=== PATIENT | male | born 1975 | race African-American/Black ===

== ENCOUNTER 2017-05-31 13:32 | Inpatient (IN) | payer MEDICAID ==
[~2017-05-31] VITALS: Ht 172.7 cm; Wt 67.3 kg
[2017-05-31 14:14] LABS: BASOPHILS 0.3 % (0-2); EOSINOPHILS 3.1 % (0-7); HEMATOCRIT 39.2 % (42.0-54.0); HEMOGLOBIN 12.9 g/dL (13.5-17.5); IMMATURE GRANULOCYTES 0.1 % (0-5); LYMPHOCYTES 30.9 % (15-50); MCH 30.1 pg (26.0-34.0); MCHC 32.9 g/dL (31.0-37.0); MCV 91.6 fL (80.0-100.0); MEAN PLATELET VOLUME 9.5 fL (7.4-10.4); MONOCYTES 10.1 % (2-11); NEUTROPHILS 55.5 % (40-80); PLATELET COUNT 261 10x3/uL (130-400); RBC 4.28 10x6/uL (4.20-6.10); RDW 14.5 % (11.5-14.5); WBC 8.7 10x3/uL (4.8-10.8)
[2017-05-31 14:28] LABS: ALBUMIN 3.8 g/dL (3.4-5.0); ANION GAP 10.9 mmol/L (8-16); BILIRUBIN - TOTAL 0.32 mg/dL (0.2-1.3); CALCIUM 8.9 mg/dL (8.5-10.1); CARBON DIOXIDE 29.2 mmol/L (21.0-32.0); CREATININE - SERUM 1.2 mg/dL (0.6-1.3); POTASSIUM - SERUM 4.1 mmol/L (3.5-5.1); PROTEIN - SERUM 7.3 g/dL (6.4-8.2)
[2017-05-31 14:35] LABS: APPEARANCE CLEAR (CLEAR); BILIRUBIN NEGATIVE (NEGATIVE); COLOR STRAW (YELLOW); GLUCOSE NEGATIVE (NEGATIVE); KETONE NEGATIVE (NEGATIVE); NITRITE NEGATIVE (NEGATIVE); PROTEIN NEGATIVE (NEGATIVE); SPECIFIC GRAVITY 1.005 (1.005-1.020); UROBILINOGEN NORMAL (NORMAL)
[2017-05-31 16:40] LABS: UDS - AMPHET NEGATIVE QUAL (NEGATIVE); UDS - BARB NEGATIVE QUAL (NEGATIVE); UDS - BENZO NEGATIVE QUAL (NEGATIVE); UDS - COCAINE NEGATIVE QUAL (NEGATIVE); UDS - OPIATE NEGATIVE QUAL (NEGATIVE); UDS - PCP NEGATIVE QUAL (NEGATIVE); UDS - THC POSITIVE QUAL (NEGATIVE)
[2017-05-31 18:30] VITALS: BP 129/90; BMI 22.5
[2017-05-31] MEDS ORDERED: PROAIR HFA8.5 GM INH (19:02)
[2017-05-31 20:00] VITALS: BP 121/79
[2017-05-31 23:53] VITALS: BP 125/81
[2017-06-01 02:46] VITALS: BP 125/82
[2017-06-01 04:46] LABS: BASOPHILS 0.4 % (0-2); EOSINOPHILS 4.2 % (0-7); HEMATOCRIT 37.5 % (42.0-54.0); IMMATURE GRANULOCYTES 0.1 % (0-5); MCH 29.3 pg (26.0-34.0); MCV 91.5 fL (80.0-100.0); MEAN PLATELET VOLUME 9.2 fL (7.4-10.4); MONOCYTES 9.5 % (2-11); NEUTROPHILS 55.8 % (40-80); PLATELET COUNT 248 10x3/uL (130-400); RDW 14.8 % (11.5-14.5); WBC 7.4 10x3/uL (4.8-10.8)
[2017-06-01 05:01] LABS: INR 1.04 (0.85-1.17); PROTIME 13.2 SECONDS (11.6-15.0)
[2017-06-01 05:10] LABS: ALBUMIN 3.2 g/dL (3.4-5.0); ALKALINE PHOSPHATASE 51 U/L (46-116); ALT (SGPT) 17 U/L (10-68); CALC OSMOLALITY 279 mosm/kg (275-300); CALCIUM 8.4 mg/dL (8.5-10.1); CHLORIDE - SERUM 109 mmol/L (98-107); CREATININE - SERUM 1.1 mg/dL (0.6-1.3); GLUCOSE 89 mg/dL (74-106); POTASSIUM - SERUM 4.2 mmol/L (3.5-5.1); SODIUM 142 mmol/L (136-145); UREA NITROGEN 8 mg/dL (7-18); eGFR NON AFRICAN AMERICAN 79 mL/min (90-120)
[2017-06-01 05:11] LABS: CHOL - HDL RATIO 4.1 ratio (2.3-4.9); LDL-HDL RATIO 2.6 ratio (1.5-3.5)
[2017-06-01 08:42] VITALS: BP 120/80
[2017-06-01 10:49] VITALS: Ht 172.7 cm; Wt 67.3 kg
[2017-06-01] MEDS ORDERED: PROTONIX40 MG PO (10:52)
[2017-06-01 11:51] VITALS: BP 115/71
== END 2017-06-01 16:38 | disposition home or self-care (01) | DRG 440 ==
LOC: D.ER 13:32 → D.MS 17:16
PROVIDERS: Family Medicine; Internal Medicine Gastroenterology; Nurse Practitioner Family
DX: K85.90 Acute pancreatitis without necrosis or infection, unspecified (principal); K21.9 Gastro-esophageal reflux disease without esophagitis; F12.90 Cannabis use, unspecified, uncomplicated; Z72.0 Tobacco use

== ENCOUNTER 2017-06-07 16:00 | Emergency (ER) | payer MEDICAID ==
[2017-06-01 10:49] VITALS: BMI 22.5
[~2017-06-07 16:00] MED LIST: PROAIR HFA8.5 GM INH; PROTONIX40 MG PO
[2017-06-07 17:47] LABS: BASOPHILS 0.2 % (0-2); EOSINOPHILS 3.7 % (0-7); HEMATOCRIT 37.1 % (42.0-54.0); HEMOGLOBIN 11.9 g/dL (13.5-17.5); IMMATURE GRANULOCYTES 0.2 % (0-5); LYMPHOCYTES 31.4 % (15-50); MCH 29.5 pg (26.0-34.0); MCHC 32.1 g/dL (31.0-37.0); MCV 91.8 fL (80.0-100.0); MEAN PLATELET VOLUME 9.7 fL (7.4-10.4); MONOCYTES 9.7 % (2-11); NEUTROPHILS 54.8 % (40-80); PLATELET COUNT 261 10x3/uL (130-400); RBC 4.04 10x6/uL (4.20-6.10); RDW 14.5 % (11.5-14.5)
[2017-06-07 18:10] LABS: ALBUMIN 3.5 g/dL (3.4-5.0); ALKALINE PHOSPHATASE 51 U/L (46-116); ALT (SGPT) 17 U/L (10-68); AMYLASE - SERUM 55 U/L (25-115); BILIRUBIN - TOTAL 0.18 mg/dL (0.2-1.3); CALC OSMOLALITY 286 mosm/kg (275-300); CALCIUM 8.4 mg/dL (8.5-10.1); CARBON DIOXIDE 29.3 mmol/L (21.0-32.0); CHLORIDE - SERUM 108 mmol/L (98-107); CREATININE - SERUM 1.1 mg/dL (0.6-1.3); GLUCOSE 93 mg/dL (74-106); LIPASE 116 U/L (73-393); POTASSIUM - SERUM 3.7 mmol/L (3.5-5.1); PROTEIN - SERUM 6.8 g/dL (6.4-8.2); SODIUM 144 mmol/L (136-145); UREA NITROGEN 12 mg/dL (7-18); eGFR NON AFRICAN AMERICAN 79 mL/min (90-120)
== END 2017-06-07 18:58 | disposition home or self-care (01) ==
LOC: D.ER 16:00
PROVIDERS: Family Medicine
DX: B34.9 Viral infection, unspecified (principal); F17.200 Nicotine dependence, unspecified, uncomplicated

== ENCOUNTER 2017-06-21 22:12 | Emergency (ER) | payer MEDICAID ==
[2017-06-01 10:49] VITALS: BMI 22.5
[2017-06-21 22:28] LABS: BASOPHILS 0.6 % (0-2); EOSINOPHILS 4.9 % (0-7); HEMOGLOBIN 10.8 g/dL (13.5-17.5); LYMPHOCYTES 36.6 % (15-50); MCH 29.1 pg (26.0-34.0); MCHC 31.8 g/dL (31.0-37.0); MCV 91.6 fL (80.0-100.0); MEAN PLATELET VOLUME 8.6 fL (7.4-10.4); MONOCYTES 7.8 % (2-11); NEUTROPHILS 50.1 % (40-80); PLATELET COUNT 249 10x3/uL (130-400); RBC 3.71 10x6/uL (4.20-6.10); RDW 14.4 % (11.5-14.5); WBC 8.2 10x3/uL (4.8-10.8)
[2017-06-21 22:43] LABS: ALBUMIN 3.3 g/dL (3.4-5.0); ALKALINE PHOSPHATASE 50 U/L (46-116); ALT (SGPT) 14 U/L (10-68); AMYLASE - SERUM 66 U/L (25-115); CALC OSMOLALITY 284 mosm/kg (275-300); CARBON DIOXIDE 28.5 mmol/L (21.0-32.0); CHLORIDE - SERUM 108 mmol/L (98-107); CREATININE - SERUM 1.1 mg/dL (0.6-1.3); GLUCOSE 103 mg/dL (74-106); LIPASE 227 U/L (73-393); POTASSIUM - SERUM 3.7 mmol/L (3.5-5.1); PROTEIN - SERUM 6.4 g/dL (6.4-8.2); SODIUM 143 mmol/L (136-145); UREA NITROGEN 13 mg/dL (7-18); eGFR NON AFRICAN AMERICAN 79 mL/min (90-120)
[2017-06-22 00:07] LABS: APPEARANCE CLEAR (CLEAR); COLOR YELLOW (YELLOW)
[2017-06-22 00:08] LABS: BILIRUBIN NEGATIVE (NEGATIVE); GLUCOSE NEGATIVE (NEGATIVE); KETONE NEGATIVE (NEGATIVE); NITRITE NEGATIVE (NEGATIVE); PROTEIN NEGATIVE (NEGATIVE); UROBILINOGEN NORMAL (NORMAL)
== END 2017-06-22 00:56 | disposition home or self-care (01) ==
LOC: D.ER 22:12
PROVIDERS: Family Medicine
DX: K21.9 Gastro-esophageal reflux disease without esophagitis (principal)

== ENCOUNTER 2017-07-01 20:08 | Emergency (ER) | payer MEDICAID ==
[2017-06-01 10:49] VITALS: BMI 22.5
[2017-07-01 20:42] LABS: BASOPHILS 0.4 % (0-2); EOSINOPHILS 4.5 % (0-7); HEMATOCRIT 36.3 % (42.0-54.0); HEMOGLOBIN 11.7 g/dL (13.5-17.5); IMMATURE GRANULOCYTES 0.1 % (0-5); LYMPHOCYTES 37.5 % (15-50); MCH 29.5 pg (26.0-34.0); MCHC 32.2 g/dL (31.0-37.0); MCV 91.7 fL (80.0-100.0); MEAN PLATELET VOLUME 9.2 fL (7.4-10.4); MONOCYTES 6.7 % (2-11); NEUTROPHILS 50.8 % (40-80); PLATELET COUNT 228 10x3/uL (130-400); RBC 3.96 10x6/uL (4.20-6.10); RDW 14.9 % (11.5-14.5); WBC 8.4 10x3/uL (4.8-10.8)
[2017-07-01 21:43] LABS: ALBUMIN 3.7 g/dL (3.4-5.0); BILIRUBIN - TOTAL 0.2 mg/dL (0.2-1.3); CALCIUM 8.8 mg/dL (8.5-10.1); CARBON DIOXIDE 25.7 mmol/L (21.0-32.0); CREATININE - SERUM 1.2 mg/dL (0.6-1.3); POTASSIUM - SERUM 3.7 mmol/L (3.5-5.1); PROTEIN - SERUM 6.7 g/dL (6.4-8.2)
== END 2017-07-02 00:30 | disposition home or self-care (01) ==
LOC: D.ER 20:08
PROVIDERS: Family Medicine
DX: R10.9 Unspecified abdominal pain (principal); R11.10 Vomiting, unspecified; K52.9 Noninfective gastroenteritis and colitis, unspecified; K21.9 Gastro-esophageal reflux disease without esophagitis; F17.200 Nicotine dependence, unspecified, uncomplicated

== ENCOUNTER 2017-07-08 23:55 | Emergency (ER) | payer MEDICAID ==
[2017-06-01 10:49] VITALS: BMI 22.5
== END 2017-07-09 00:40 | disposition home or self-care (01) ==
LOC: D.ER 23:55
DX: G89.18 Other acute postprocedural pain (principal); K21.9 Gastro-esophageal reflux disease without esophagitis; F17.200 Nicotine dependence, unspecified, uncomplicated

== ENCOUNTER 2017-07-12 03:00 | Emergency (ER) | payer MEDICAID ==
[2017-06-01 10:49] VITALS: BMI 22.5
[2017-07-12 03:43] LABS: BASOPHILS 0.4 % (0-2); EOSINOPHILS 4.3 % (0-7); HEMATOCRIT 35.2 % (42.0-54.0); HEMOGLOBIN 11.2 g/dL (13.5-17.5); IMMATURE GRANULOCYTES 0.1 % (0-5); LYMPHOCYTES 38.3 % (15-50); MCHC 31.8 g/dL (31.0-37.0); MCV 91.2 fL (80.0-100.0); MEAN PLATELET VOLUME 9.1 fL (7.4-10.4); MONOCYTES 8.3 % (2-11); NEUTROPHILS 48.6 % (40-80); PLATELET COUNT 250 10x3/uL (130-400); RBC 3.86 10x6/uL (4.20-6.10); RDW 14.9 % (11.5-14.5)
[2017-07-12 03:59] LABS: ALBUMIN 3.4 g/dL (3.4-5.0); ALKALINE PHOSPHATASE 52 U/L (46-116); ALT (SGPT) 24 U/L (10-68); BILIRUBIN - TOTAL 0.47 mg/dL (0.2-1.3); CALC OSMOLALITY 280 mosm/kg (275-300); CALCIUM 8.3 mg/dL (8.5-10.1); CARBON DIOXIDE 28.6 mmol/L (21.0-32.0); CHLORIDE - SERUM 106 mmol/L (98-107); CREATININE - SERUM 1.2 mg/dL (0.6-1.3); GLUCOSE 131 mg/dL (74-106); POTASSIUM - SERUM 3.3 mmol/L (3.5-5.1); PROTEIN - SERUM 6.6 g/dL (6.4-8.2); SODIUM 140 mmol/L (136-145); UREA NITROGEN 13 mg/dL (7-18); eGFR NON AFRICAN AMERICAN 72 mL/min (90-120)
[2017-07-12 04:08] LABS: CKMB 2.7 U/L (0.0-3.6); CREATINE KINASE 448 UL (21-232); TROPONIN-I < 0.017 ng/mL (0.000-0.060)
== END 2017-07-12 08:35 | disposition home or self-care (01) ==
LOC: D.ER 03:00
PROVIDERS: Emergency Medicine
DX: R07.9 Chest pain, unspecified (principal); K21.9 Gastro-esophageal reflux disease without esophagitis; F17.200 Nicotine dependence, unspecified, uncomplicated

== ENCOUNTER 2017-09-15 21:58 | Emergency (ER) | payer MEDICAID ==
[2017-06-01 10:49] VITALS: BMI 22.5
== END 2017-09-16 00:45 | disposition home or self-care (01) ==
LOC: D.ER 21:58
DX: S46.911A Strain of unspecified muscle, fascia and tendon at shoulder and upper arm level, right arm, initial encounter (principal); V09.9XXA Pedestrian injured in unspecified transport accident, initial encounter; Y93.01 Activity, walking, marching and hiking; Y92.410 Unspecified street and highway as the place of occurrence of the external cause

== ENCOUNTER 2017-09-24 01:25 | Emergency (ER) | payer MEDICAID ==
[2017-06-01 10:49] VITALS: BMI 22.5
== END 2017-09-24 03:04 | disposition home or self-care (01) ==
LOC: D.ER 01:25
DX: M25.511 Pain in right shoulder (principal); S46.911A Strain of unspecified muscle, fascia and tendon at shoulder and upper arm level, right arm, initial encounter; X58.XXXA Exposure to other specified factors, initial encounter; Y93.89 Activity, other specified; Y92.89 Other specified places as the place of occurrence of the external cause; M19.011 Primary osteoarthritis, right shoulder; M79.1 Myalgia

== ENCOUNTER 2017-09-26 15:17 | Emergency (ER) | payer MEDICAID ==
[2017-06-01 10:49] VITALS: BMI 22.5
== END 2017-09-26 17:02 | disposition home or self-care (01) ==
LOC: D.ER 15:17
DX: S80.01XA Contusion of right knee, initial encounter (principal); V09.9XXA Pedestrian injured in unspecified transport accident, initial encounter; Y93.01 Activity, walking, marching and hiking; Y92.410 Unspecified street and highway as the place of occurrence of the external cause; F17.200 Nicotine dependence, unspecified, uncomplicated

== ENCOUNTER 2017-09-29 21:44 | Emergency (ER) | payer MEDICAID ==
[2017-06-01 10:49] VITALS: BMI 22.5
[2017-09-29 22:58] LABS: BASOPHILS 0.2 % (0-2); EOSINOPHILS 1.4 % (0-7); HEMATOCRIT 38.6 % (42.0-54.0); HEMOGLOBIN 13.3 g/dL (13.5-17.5); IMMATURE GRANULOCYTES 0.2 % (0-5); LYMPHOCYTES 21.6 % (15-50); MCHC 34.5 g/dL (31.0-37.0); MEAN PLATELET VOLUME 9.5 fL (7.4-10.4); NEUTROPHILS 70.6 % (40-80); PLATELET COUNT 281 10x3/uL (130-400); RBC 4.29 10x6/uL (4.20-6.10); RDW 14.9 % (11.5-14.5); WBC 12.2 10x3/uL (4.8-10.8)
[2017-09-29 23:13] LABS: ALBUMIN 3.8 g/dL (3.4-5.0); ANION GAP 13.4 mmol/L (8-16); BILIRUBIN - TOTAL 0.34 mg/dL (0.2-1.3); CALCIUM 8.8 mg/dL (8.5-10.1); CARBON DIOXIDE 27.2 mmol/L (21.0-32.0); CREATININE - SERUM 1.5 mg/dL (0.6-1.3); POTASSIUM - SERUM 3.6 mmol/L (3.5-5.1); PROTEIN - SERUM 7.5 g/dL (6.4-8.2)
== END 2017-09-30 00:53 | disposition home or self-care (01) ==
LOC: D.ER 21:44
PROVIDERS: Emergency Medicine
DX: M54.5 Low back pain (principal); V03.90XA Pedestrian on foot injured in collision with car, pick-up truck or van, unspecified whether traffic or nontraffic accident, initial encounter; Y93.01 Activity, walking, marching and hiking; Y92.410 Unspecified street and highway as the place of occurrence of the external cause; F17.200 Nicotine dependence, unspecified, uncomplicated

== ENCOUNTER 2017-10-13 10:35 | Emergency (ER) | payer MEDICAID ==
[~2017-10-13] VITALS: Ht 172.7 cm; Wt 63.6 kg
[2017-10-13 11:07] VITALS: Ht 172.7 cm; Wt 63.6 kg
[2017-10-13] MEDS ORDERED: VISTARIL25 MG PO (11:56)
[2017-10-13] MEDS ORDERED: NAPROSYN500 MG PO (11:58)
[2017-10-13 12:50] VITALS: BP 127/71
== END 2017-10-13 12:52 | disposition home or self-care (01) ==
LOC: D.ER 10:35
DX: F41.9 Anxiety disorder, unspecified (principal); M54.5 Low back pain; S46.911A Strain of unspecified muscle, fascia and tendon at shoulder and upper arm level, right arm, initial encounter; V49.9XXA Car occupant (driver) (passenger) injured in unspecified traffic accident, initial encounter; Y93.89 Activity, other specified; Y92.410 Unspecified street and highway as the place of occurrence of the external cause; F17.200 Nicotine dependence, unspecified, uncomplicated

== ENCOUNTER 2017-11-07 00:03 | Emergency (ER) | payer MEDICAID ==
[~2017-11-07] VITALS: Ht 172.7 cm; Wt 68.2 kg
[~2017-11-07 00:03] MED LIST changes: +NAPROSYN500 MG PO; +VISTARIL25 MG PO
[2017-11-07 00:34] VITALS: Ht 172.7 cm; Wt 68.2 kg
[2017-11-07 02:01] LABS: BASOPHILS 0.4 % (0-2); EOSINOPHILS 4.6 % (0-7); HEMATOCRIT 40.6 % (42.0-54.0); HEMOGLOBIN 13.3 g/dL (13.5-17.5); IMMATURE GRANULOCYTES 0.1 % (0-5); LYMPHOCYTES 36.5 % (15-50); MCH 30.5 pg (26.0-34.0); MCHC 32.8 g/dL (31.0-37.0); MCV 93.1 fL (80.0-100.0); MONOCYTES 7.2 % (2-11); NEUTROPHILS 51.2 % (40-80); PLATELET COUNT 267 10x3/uL (130-400); RBC 4.36 10x6/uL (4.20-6.10); WBC 9.1 10x3/uL (4.8-10.8)
[2017-11-07 02:19] LABS: ALBUMIN 3.8 g/dL (3.4-5.0); ALKALINE PHOSPHATASE 73 U/L (46-116); ALT (SGPT) 26 U/L (10-68); BILIRUBIN - TOTAL 0.45 mg/dL (0.2-1.3); CALC OSMOLALITY 290 mosm/kg (275-300); CARBON DIOXIDE 30.8 mmol/L (21.0-32.0); CHLORIDE - SERUM 108 mmol/L (98-107); CREATININE - SERUM 1.4 mg/dL (0.6-1.3); GLUCOSE 88 mg/dL (74-106); PROTEIN - SERUM 7.4 g/dL (6.4-8.2); SODIUM 146 mmol/L (136-145); UREA NITROGEN 14 mg/dL (7-18); eGFR NON AFRICAN AMERICAN 60 mL/min (90-120)
[2017-11-07 02:22] LABS: AMYLASE - SERUM 105 U/L (25-115); LIPASE 287 U/L (73-393); TROPONIN-I < 0.017 ng/mL (0.000-0.060)
[2017-11-07 05:47] VITALS: BP 143/93
== END 2017-11-07 05:48 | disposition home or self-care (01) ==
LOC: D.ER 00:03
PROVIDERS: Family Medicine
DX: R10.9 Unspecified abdominal pain (principal); M25.571 Pain in right ankle and joints of right foot; F17.200 Nicotine dependence, unspecified, uncomplicated

== ENCOUNTER 2017-12-15 23:43 | Emergency (ER) | payer MEDICAID ==
[~2017-12-15] VITALS: Ht 172.7 cm; Wt 50.9 kg
[2017-12-15 23:59] VITALS: Ht 172.7 cm; Wt 50.9 kg
[2017-12-16] MEDS ORDERED: NAPROSYN500 MG PO (00:45)
[2017-12-16 01:24] VITALS: BP 127/81
== END 2017-12-16 01:23 | disposition home or self-care (01) ==
LOC: D.ER 23:43
DX: M19.021 Primary osteoarthritis, right elbow (principal); F17.200 Nicotine dependence, unspecified, uncomplicated

== ENCOUNTER 2018-04-02 18:37 | Emergency (ER) | payer MEDICAID ==
[~2018-04-02] VITALS: Ht 172.7 cm; Wt 66.8 kg
[2018-04-02 18:59] VITALS: Ht 172.7 cm; Wt 66.8 kg
[2018-04-02 19:13] LABS: BASOPHILS 0.3 % (0-2); EOSINOPHILS 3.2 % (0-7); HEMOGLOBIN 12.1 g/dL (13.5-17.5); IMMATURE GRANULOCYTES 0.3 % (0-5); LYMPHOCYTES 29.6 % (15-50); MCH 30.3 pg (26.0-34.0); MCHC 32.7 g/dL (31.0-37.0); MCV 92.7 fL (80.0-100.0); MEAN PLATELET VOLUME 9.6 fL (7.4-10.4); MONOCYTES 7.1 % (2-11); NEUTROPHILS 59.5 % (40-80); PLATELET COUNT 270 10x3/uL (130-400); RBC 3.99 10x6/uL (4.20-6.10); RDW 15.3 % (11.5-14.5); WBC 9.6 10x3/uL (4.8-10.8)
[2018-04-02 19:37] LABS: ALBUMIN 3.5 g/dL (3.4-5.0); ANION GAP 13.3 mmol/L (8-16); BILIRUBIN - TOTAL 0.17 mg/dL (0.2-1.3); CALCIUM 8.2 mg/dL (8.5-10.1); CARBON DIOXIDE 27.3 mmol/L (21.0-32.0); CREATININE - SERUM 1.5 mg/dL (0.6-1.3); POTASSIUM - SERUM 3.6 mmol/L (3.5-5.1); PROTEIN - SERUM 7.1 g/dL (6.4-8.2)
[2018-04-02 19:56] LABS: APPEARANCE HAZY (CLEAR); BILIRUBIN NEGATIVE (NEGATIVE); COLOR YELLOW (YELLOW); GLUCOSE NEGATIVE (NEGATIVE); KETONE NEGATIVE (NEGATIVE); NITRITE NEGATIVE (NEGATIVE); PROTEIN NEGATIVE (NEGATIVE); UROBILINOGEN NORMAL (NORMAL)
[2018-04-02 19:57] LABS: BACTERIA FEW /hpf (NONE SEEN); RED CELLS - URINE RARE /hpf (0-5); WHITE CELLS - URINE 0-5 /hpf (0-5)
[2018-04-02] MEDS ORDERED: PROTONIX40 MG PO (21:08)
[2018-04-02 21:23] VITALS: BP 133/63
== END 2018-04-02 21:23 | disposition home or self-care (01) ==
LOC: D.ER 18:37
PROVIDERS: Family Medicine
DX: R10.9 Unspecified abdominal pain (principal); K21.9 Gastro-esophageal reflux disease without esophagitis; R11.2 Nausea with vomiting, unspecified

== ENCOUNTER 2018-08-06 17:21 | Emergency (ER) | payer MEDICAID ==
[~2018-08-06] VITALS: Ht 172.7 cm; Wt 66.2 kg
[2018-08-06 17:35] VITALS: Ht 172.7 cm; Wt 66.2 kg
[2018-08-06] MEDS ORDERED: OXYCODONE HCL5 M1 PO (19:07)
[2018-08-06 19:16] VITALS: BP 132/80
== END 2018-08-06 19:16 | disposition home or self-care (01) ==
LOC: D.ER 17:21
DX: S61.216A Laceration without foreign body of right little finger without damage to nail, initial encounter (principal); V19.3XXA Pedal cyclist (driver) (passenger) injured in unspecified nontraffic accident, initial encounter; S60.151A Contusion of right little finger with damage to nail, initial encounter

== ENCOUNTER 2018-09-15 17:59 | Emergency (ER) | payer MEDICAID ==
[~2018-09-15] VITALS: Ht 172.7 cm; Wt 66.8 kg
[~2018-09-15 17:59] MED LIST changes: +OXYCODONE HCL5 M1 PO
[2018-09-15 18:21] VITALS: Ht 172.7 cm; Wt 66.8 kg
[2018-09-15] MEDS ORDERED: ROBAXIN500 MG PO (20:53)
[2018-09-15 21:08] VITALS: BP 125/76
== END 2018-09-15 21:09 | disposition home or self-care (01) ==
LOC: D.ER 17:59
DX: S16.1XXA Strain of muscle, fascia and tendon at neck level, initial encounter (principal); W17.89XA Other fall from one level to another, initial encounter; Y93.89 Activity, other specified; Y92.019 Unspecified place in single-family (private) house as the place of occurrence of the external cause; M79.18 Myalgia, other site

== ENCOUNTER 2018-09-22 07:16 | Emergency (ER) | payer MEDICAID ==
[~2018-09-22] VITALS: Ht 172.7 cm; Wt 67.3 kg
[~2018-09-22 07:16] MED LIST changes: +ROBAXIN500 MG PO
[2018-09-22 07:20] VITALS: Ht 172.7 cm; Wt 67.3 kg
[2018-09-22] MEDS ORDERED: DICLOFENAC SODI50 MG PO (07:41)
[2018-09-22] MEDS ORDERED: KEFLEX500 MG PO (07:41)
[2018-09-22 07:49] VITALS: BP 114/82
== END 2018-09-22 07:52 | disposition home or self-care (01) ==
LOC: D.ER 07:16
DX: M79.601 Pain in right arm (principal); K02.9 Dental caries, unspecified; K08.89 Other specified disorders of teeth and supporting structures

== ENCOUNTER 2018-11-18 03:06 | Emergency (ER) | payer MEDICAID ==
[~2018-11-18 03:06] MED LIST changes: +DICLOFENAC SODI50 MG PO; +KEFLEX500 MG PO
[2018-11-18 03:14] VITALS: Ht 172.7 cm
[2018-11-18 04:28] LABS: BASOPHILS 0.2 % (0-2); EOSINOPHILS 3.4 % (0-7); HEMATOCRIT 38.3 % (42.0-54.0); HEMOGLOBIN 12.7 g/dL (13.5-17.5); IMMATURE GRANULOCYTES 0.1 % (0-5); LYMPHOCYTES 36.1 % (15-50); MCH 30.5 pg (26.0-34.0); MCHC 33.2 g/dL (31.0-37.0); MCV 92.1 fL (80.0-100.0); MONOCYTES 9.7 % (2-11); NEUTROPHILS 50.5 % (40-80); PLATELET COUNT 252 10x3/uL (130-400); RBC 4.16 10x6/uL (4.20-6.10); RDW 14.5 % (11.5-14.5); WBC 8.3 10x3/uL (4.8-10.8)
[2018-11-18 04:36] LABS: APTT 26.7 SECONDS (22.8-39.4); INR 1.09 (0.85-1.17); PROTIME 13.6 SECONDS (11.6-15.0)
[2018-11-18 04:40] LABS: ALBUMIN 3.5 g/dL (3.4-5.0); ALKALINE PHOSPHATASE 62 U/L (46-116); ALT (SGPT) 35 U/L (10-68); BILIRUBIN - TOTAL 0.68 mg/dL (0.2-1.3); CALC OSMOLALITY 282 mosm/kg (275-300); CALCIUM 8.4 mg/dL (8.5-10.1); CHLORIDE - SERUM 105 mmol/L (98-107); CREATININE - SERUM 1.2 mg/dL (0.6-1.3); GLUCOSE 74 mg/dL (74-106); POTASSIUM - SERUM 3.5 mmol/L (3.5-5.1); PROTEIN - SERUM 6.7 g/dL (6.4-8.2); SODIUM 142 mmol/L (136-145); UREA NITROGEN 14 mg/dL (7-18); eGFR NON AFRICAN AMERICAN 71 mL/min (90-120)
[2018-11-18 04:59] LABS: CKMB 11.3 U/L (0.0-3.6); MAGNESIUM - SERUM 2.1 mg/dL (1.8-2.4); TROPONIN-I < 0.017 ng/mL (0.000-0.060)
[2018-11-18 05:00] LABS: CREATINE KINASE 1312 UL (21-232)
[2018-11-18 06:22] LABS: APPEARANCE CLEAR (CLEAR); BILIRUBIN NEGATIVE (NEGATIVE); COLOR YELLOW (YELLOW); GLUCOSE NEGATIVE (NEGATIVE); KETONE NEGATIVE (NEGATIVE); NITRITE NEGATIVE (NEGATIVE); PROTEIN NEGATIVE (NEGATIVE); UROBILINOGEN NORMAL (NORMAL)
[2018-11-18 06:34] LABS: UDS - AMPHET POSITIVE QUAL (NEGATIVE); UDS - BARB NEGATIVE QUAL (NEGATIVE); UDS - BENZO NEGATIVE QUAL (NEGATIVE); UDS - COCAINE POSITIVE QUAL (NEGATIVE); UDS - OPIATE NEGATIVE QUAL (NEGATIVE); UDS - PCP NEGATIVE QUAL (NEGATIVE); UDS - THC POSITIVE QUAL (NEGATIVE)
[2018-11-18 09:11] VITALS: BP 125/82
== END 2018-11-18 09:12 | disposition home or self-care (01) ==
LOC: D.ER 03:06
PROVIDERS: Family Medicine
DX: R07.9 Chest pain, unspecified (principal); M62.82 Rhabdomyolysis; F19.10 Other psychoactive substance abuse, uncomplicated

== ENCOUNTER 2018-11-30 11:32 | Emergency (ER) | payer MEDICAID ==
[~2018-11-30] VITALS: Ht 172.7 cm; Wt 70.0 kg
[2018-11-30 11:34] VITALS: Ht 172.7 cm; Wt 70.0 kg
[2018-11-30] MEDS ORDERED: KEFLEX500 MG PO (14:07)
[2018-11-30 14:45] VITALS: BP 146/98
[2018-11-30] MEDS ORDERED: TORADOL10 MG PO (15:16)
--- NOTE | 2018-12-01 10:31 | NUR ---
11/30/2018 1445 Patients IV removed with cath intact after 250 ml fluid infused, started approximately 1410 with saline infusing rapidly, stopped and IV removed at 1440. Chest dressed with neosporin, fluffy 4x4 gauze and kerlix wrap. Brittany Hernandez RN
== END 2018-11-30 14:45 | disposition home or self-care (01) ==
LOC: D.ER 11:32
DX: T21.21XA Burn of second degree of chest wall, initial encounter (principal); T20.27XA Burn of second degree of neck, initial encounter; T21.22XA Burn of second degree of abdominal wall, initial encounter; X12.XXXA Contact with other hot fluids, initial encounter; Y93.89 Activity, other specified; Y92.89 Other specified places as the place of occurrence of the external cause

== ENCOUNTER 2018-12-03 00:34 | Emergency (ER) | payer MEDICAID ==
[~2018-12-03] VITALS: Ht 172.7 cm; Wt 67.3 kg
[~2018-12-03 00:34] MED LIST changes: +TORADOL10 MG PO
[2018-12-03 00:35] VITALS: Ht 172.7 cm; Wt 67.3 kg
[2018-12-03] MEDS ORDERED: DILAUDID4 MG PO (00:56)
[2018-12-03 01:20] VITALS: BP 125/74
== END 2018-12-03 01:21 | disposition home or self-care (01) ==
LOC: D.ER 00:34
DX: T21.21XA Burn of second degree of chest wall, initial encounter (principal); T22.251A Burn of second degree of right shoulder, initial encounter; T21.22XA Burn of second degree of abdominal wall, initial encounter; W29.2XXA Contact with other powered household machinery, initial encounter; Y93.89 Activity, other specified; Y92.89 Other specified places as the place of occurrence of the external cause

== ENCOUNTER 2018-12-07 01:06 | Emergency (ER) | payer MEDICAID ==
[~2018-12-07] VITALS: Ht 172.7 cm; Wt 66.4 kg
[~2018-12-07 01:06] MED LIST changes: +DILAUDID4 MG PO
[2018-12-07 01:13] VITALS: Ht 172.7 cm; Wt 66.4 kg
[2018-12-07 01:40] LABS: BASOPHILS 0.3 % (0-2); EOSINOPHILS 5.4 % (0-7); HEMATOCRIT 35.8 % (42.0-54.0); HEMOGLOBIN 12.2 g/dL (13.5-17.5); IMMATURE GRANULOCYTES 0.1 % (0-5); MCH 30.4 pg (26.0-34.0); MCHC 34.1 g/dL (31.0-37.0); MCV 89.3 fL (80.0-100.0); MEAN PLATELET VOLUME 9.3 fL (7.4-10.4); MONOCYTES 6.9 % (2-11); NEUTROPHILS 59.3 % (40-80); PLATELET COUNT 277 10x3/uL (130-400); RBC 4.01 10x6/uL (4.20-6.10); RDW 14.3 % (11.5-14.5); WBC 8.9 10x3/uL (4.8-10.8)
[2018-12-07 02:03] LABS: ALBUMIN 3.4 g/dL (3.4-5.0); ALKALINE PHOSPHATASE 70 U/L (46-116); ALT (SGPT) 22 U/L (10-68); BILIRUBIN - TOTAL 0.32 mg/dL (0.2-1.3); CALC OSMOLALITY 253 mosm/kg (275-300); CALCIUM 8.3 mg/dL (8.5-10.1); CARBON DIOXIDE 31.2 mmol/L (21.0-32.0); CHLORIDE - SERUM 101 mmol/L (98-107); CREATININE - SERUM 0.9 mg/dL (0.6-1.3); GLUCOSE 81 mg/dL (74-106); POTASSIUM - SERUM 3.6 mmol/L (3.5-5.1); PROTEIN - SERUM 6.8 g/dL (6.4-8.2); SODIUM 128 mmol/L (136-145); UREA NITROGEN 8 mg/dL (7-18); eGFR NON AFRICAN AMERICAN > 90 mL/min (90-120)
[2018-12-07 03:11] LABS: UDS - AMPHET POSITIVE QUAL (NEGATIVE); UDS - BARB NEGATIVE QUAL (NEGATIVE); UDS - BENZO NEGATIVE QUAL (NEGATIVE); UDS - COCAINE POSITIVE QUAL (NEGATIVE); UDS - OPIATE POSITIVE QUAL (NEGATIVE); UDS - PCP NEGATIVE QUAL (NEGATIVE); UDS - THC POSITIVE QUAL (NEGATIVE)
[2018-12-07 03:31] LABS: APPEARANCE CLEAR (CLEAR); BILIRUBIN NEGATIVE (NEGATIVE); COLOR YELLOW (YELLOW); GLUCOSE NEGATIVE (NEGATIVE); KETONE NEGATIVE (NEGATIVE); NITRITE NEGATIVE (NEGATIVE); PROTEIN NEGATIVE (NEGATIVE); UROBILINOGEN NORMAL (NORMAL)
[2018-12-07 03:32] LABS: BACTERIA FEW /hpf (NONE SEEN); EPITHELIAL CELLS 0-5 /hpf (0-5); WHITE CELLS - URINE 0-5 /hpf (0-5)
[2018-12-07] MEDS ORDERED: OXYCONTIN10 MG PO (03:46)
[2018-12-07 04:42] VITALS: BP 132/89
== END 2018-12-07 04:43 | disposition home or self-care (01) ==
LOC: D.ER 01:06
PROVIDERS: Family Medicine
DX: T21.31XD Burn of third degree of chest wall, subsequent encounter (principal); T20.37XD Burn of third degree of neck, subsequent encounter; T31.11 Burns involving 10-19% of body surface with 10-19% third degree burns; X12.XXXD Contact with other hot fluids, subsequent encounter; Y93.89 Activity, other specified; Y92.89 Other specified places as the place of occurrence of the external cause; E87.1 Hypo-osmolality and hyponatremia; F19.10 Other psychoactive substance abuse, uncomplicated

== ENCOUNTER 2018-12-30 14:35 | Emergency (ER) | payer MEDICAID ==
[~2018-12-30] VITALS: Ht 172.7 cm; Wt 65.9 kg
[~2018-12-30 14:35] MED LIST changes: +OXYCONTIN10 MG PO
[2018-12-30 14:53] VITALS: Ht 172.7 cm; Wt 65.9 kg
[2018-12-30] MEDS ORDERED: STERAPRED DS 1010 MG PO (15:43)
[2018-12-30 16:39] VITALS: BP 133/78
[2018-12-31] MEDS ORDERED: INDERAL 40 MG T40 MG PO (23:23)
[2018-12-31] MEDS ORDERED: LEXAPRO10 MG PO (23:24)
[2018-12-31] MEDS ORDERED: OMEPRAZOLE40 MG (23:24)
[2018-12-31] MEDS ORDERED: [UNRECOGNIZED DRUG - OTHER] (23:24)
== END 2018-12-30 16:29 | disposition home or self-care (01) ==
LOC: D.ER 14:35
DX: L23.7 Allergic contact dermatitis due to plants, except food (principal)

== ENCOUNTER 2018-12-31 23:14 | Emergency (ER) | payer MEDICAID ==
[~2018-12-31] VITALS: Ht 172.7 cm; Wt 66.8 kg
[~2018-12-31 23:14] MED LIST changes: +STERAPRED DS 1010 MG PO
[2018-12-31 23:21] VITALS: Ht 172.7 cm; Wt 66.8 kg
[2018-12-31] MEDS ORDERED: INDERAL 40 MG T40 MG PO (23:23)
[2018-12-31] MEDS ORDERED: [UNRECOGNIZED DRUG - OTHER] (23:24)
[2018-12-31] MEDS ORDERED: OMEPRAZOLE40 MG (23:24)
[2018-12-31] MEDS ORDERED: LEXAPRO10 MG PO (23:24)
[2018-12-31 23:34] LABS: HEMATOCRIT 36.2 % (42.0-54.0); HEMOGLOBIN 12.3 g/dL (13.5-17.5); MCH 30.6 pg (26.0-34.0); MEAN PLATELET VOLUME 9.2 fL (7.4-10.4); PLATELET COUNT 257 10x3/uL (130-400); RBC 4.02 10x6/uL (4.20-6.10); RDW 15.4 % (11.5-14.5); WBC 21.6 10x3/uL (4.8-10.8)
[2018-12-31 23:47] LABS: ALBUMIN 4.1 g/dL (3.4-5.0); ALKALINE PHOSPHATASE 58 U/L (46-116); ALT (SGPT) 26 U/L (10-68); BILIRUBIN - TOTAL 0.28 mg/dL (0.2-1.3); CALC OSMOLALITY 279 mosm/kg (275-300); CALCIUM 8.9 mg/dL (8.5-10.1); CHLORIDE - SERUM 105 mmol/L (98-107); GLUCOSE 109 mg/dL (74-106); POTASSIUM - SERUM 3.7 mmol/L (3.5-5.1); PROTEIN - SERUM 7.6 g/dL (6.4-8.2); SODIUM 140 mmol/L (136-145); UREA NITROGEN 13 mg/dL (7-18); eGFR NON AFRICAN AMERICAN 87 mL/min (90-120)
[2018-12-31 23:52] LABS: AMYLASE - SERUM 74 U/L (25-115); LIPASE 162 U/L (73-393)
[2018-12-31 23:58] LABS: TROPONIN-I < 0.017 ng/mL (0.000-0.060)
[2019-01-01 00:13] LABS: APPEARANCE CLEAR (CLEAR); BILIRUBIN NEGATIVE (NEGATIVE); COLOR YELLOW (YELLOW); GLUCOSE NEGATIVE (NEGATIVE); KETONE NEGATIVE (NEGATIVE); NITRITE NEGATIVE (NEGATIVE); PROTEIN NEGATIVE (NEGATIVE); SPECIFIC GRAVITY 1.015 (1.005-1.020); UROBILINOGEN NORMAL (NORMAL)
[2019-01-01 00:14] LABS: LYMPHOCYTES 13 % (15-50); MONOCYTES 9 % (2-11); NEUTROPHILS 78 % (40-80); PLATELET ESTIMATE NORMAL
[2019-01-01] MEDS ORDERED: PHENERGAN25 M1 PO (00:57)
[2019-01-01 01:15] VITALS: BP 177/81
== END 2019-01-01 01:15 | disposition home or self-care (01) ==
LOC: D.ER 23:14
PROVIDERS: Family Medicine
DX: K52.9 Noninfective gastroenteritis and colitis, unspecified (principal)

== ENCOUNTER 2019-01-05 04:21 | Emergency (ER) | payer MEDICAID ==
[~2019-01-05] VITALS: Ht 172.7 cm; Wt 54.5 kg
[~2019-01-05 04:21] MED LIST changes: +INDERAL 40 MG T40 MG PO; +LEXAPRO10 MG PO; +OMEPRAZOLE40 MG; +PHENERGAN25 M1 PO; +[UNRECOGNIZED DRUG - OTHER]
[2019-01-05 04:40] VITALS: Ht 172.7 cm; Wt 54.5 kg
--- NOTE | 2019-01-05 04:50 | NUR ---
PT CUSSING AT THIS NURSE. ATTEMPTED TO EDUCATE PT ON NEED FOR ASSESSMENT, BUT PT REFUSED TO ANSWER QUESTIONS. PT DID STATE TO TRIAGE NURSE THAT HE WISHED HE WOULD GO TO SLEEP AND NOT WAKE UP. PT IS MORE HOMICIDAL THAN SUICIDAL AT THIS TIME. WILL ATTEMPT TO GET ASSESSMENT AT A LATER TIME.
[2019-01-05 05:15] LABS: APPEARANCE CLEAR (CLEAR); BILIRUBIN NEGATIVE (NEGATIVE); COLOR YELLOW (YELLOW); GLUCOSE NEGATIVE (NEGATIVE); KETONE SMALL mg/dL (NEGATIVE); NITRITE NEGATIVE (NEGATIVE); PROTEIN NEGATIVE (NEGATIVE); UROBILINOGEN NORMAL (NORMAL)
[2019-01-05 05:20] LABS: UDS - AMPHET POSITIVE QUAL (NEGATIVE); UDS - BARB NEGATIVE QUAL (NEGATIVE); UDS - BENZO NEGATIVE QUAL (NEGATIVE); UDS - COCAINE POSITIVE QUAL (NEGATIVE); UDS - OPIATE NEGATIVE QUAL (NEGATIVE); UDS - PCP NEGATIVE QUAL (NEGATIVE); UDS - THC POSITIVE QUAL (NEGATIVE)
[2019-01-05 05:44] LABS: BASOPHILS 0.3 % (0-2); EOSINOPHILS 0.8 % (0-7); HEMATOCRIT 34.1 % (42.0-54.0); HEMOGLOBIN 11.2 g/dL (13.5-17.5); IMMATURE GRANULOCYTES 0.3 % (0-5); LYMPHOCYTES 26.9 % (15-50); MCH 29.8 pg (26.0-34.0); MCHC 32.8 g/dL (31.0-37.0); MCV 90.7 fL (80.0-100.0); MEAN PLATELET VOLUME 9.1 fL (7.4-10.4); MONOCYTES 8.5 % (2-11); NEUTROPHILS 63.2 % (40-80); PLATELET COUNT 246 10x3/uL (130-400); RBC 3.76 10x6/uL (4.20-6.10); RDW 15.8 % (11.5-14.5); WBC 11.9 10x3/uL (4.8-10.8)
--- NOTE | 2019-01-05 06:07 | NUR ---
PT IS ASLEEP AT THIS TIME, SO UNABLE TO COMPLETE ASSESSMENT.
[2019-01-05 06:08] LABS: ACETAMINOPHEN 17.9 ug/mL (10.0-30.0); ALBUMIN 3.7 g/dL (3.4-5.0); ALKALINE PHOSPHATASE 56 U/L (46-116); ALT (SGPT) 20 U/L (10-68); BILIRUBIN - TOTAL 0.72 mg/dL (0.2-1.3); CALC OSMOLALITY 289 mosm/kg (275-300); CALCIUM 8.5 mg/dL (8.5-10.1); CARBON DIOXIDE 26.7 mmol/L (21.0-32.0); CHLORIDE - SERUM 110 mmol/L (98-107); GLUCOSE 88 mg/dL (74-106); POTASSIUM - SERUM 3.7 mmol/L (3.5-5.1); PROTEIN - SERUM 6.9 g/dL (6.4-8.2); SODIUM 145 mmol/L (136-145); UREA NITROGEN 18 mg/dL (7-18); eGFR NON AFRICAN AMERICAN 87 mL/min (90-120)
[2019-01-05 08:35] VITALS: BP 126/72
== END 2019-01-05 09:09 ==
LOC: D.ER 04:21
PROVIDERS: Family Medicine
DX: R45.850 Homicidal ideations (principal); F19.10 Other psychoactive substance abuse, uncomplicated; R45.851 Suicidal ideations

== ENCOUNTER 2019-01-18 | Emergency (ER) | payer MEDICAID ==
[~2019-01-18] VITALS: Ht 172.7 cm; Wt 67.7 kg
[2019-01-18 00:17] VITALS: Ht 172.7 cm; Wt 67.7 kg
[2019-01-18] MEDS ORDERED: ANUSOL-HC25 MG RC (00:31)
[2019-01-18 00:55] LABS: BASOPHILS 0.2 % (0-2); EOSINOPHILS 2.8 % (0-7); HEMATOCRIT 35.2 % (42.0-54.0); HEMOGLOBIN 11.7 g/dL (13.5-17.5); IMMATURE GRANULOCYTES 0.2 % (0-5); LYMPHOCYTES 27.5 % (15-50); MCH 30.1 pg (26.0-34.0); MCHC 33.2 g/dL (31.0-37.0); MCV 90.5 fL (80.0-100.0); MEAN PLATELET VOLUME 9.4 fL (7.4-10.4); MONOCYTES 6.5 % (2-11); NEUTROPHILS 62.8 % (40-80); PLATELET COUNT 237 10x3/uL (130-400); RBC 3.89 10x6/uL (4.20-6.10); RDW 14.9 % (11.5-14.5); WBC 12.8 10x3/uL (4.8-10.8)
[2019-01-18 01:02] LABS: ALBUMIN 3.5 g/dL (3.4-5.0); ANION GAP 14.5 mmol/L (8-16); BILIRUBIN - TOTAL 0.22 mg/dL (0.2-1.3); CALCIUM 8.1 mg/dL (8.5-10.1); CARBON DIOXIDE 27.3 mmol/L (21.0-32.0); CREATININE - SERUM 1.3 mg/dL (0.6-1.3); POTASSIUM - SERUM 3.8 mmol/L (3.5-5.1); PROTEIN - SERUM 6.8 g/dL (6.4-8.2)
[2019-01-18 01:32] VITALS: BP 124/73
== END 2019-01-18 01:38 | disposition home or self-care (01) ==
LOC: D.ER
PROVIDERS: Family Medicine
DX: K62.5 Hemorrhage of anus and rectum (principal); K21.9 Gastro-esophageal reflux disease without esophagitis; F32.9 Major depressive disorder, single episode, unspecified

== ENCOUNTER 2019-02-04 00:43 | Emergency (ER) | payer MEDICAID ==
[~2019-02-04] VITALS: Ht 172.7 cm; Wt 63.6 kg
[~2019-02-04 00:43] MED LIST changes: +ANUSOL-HC25 MG RC
[2019-02-04 00:49] VITALS: Ht 172.7 cm; Wt 63.6 kg
[2019-02-04] MEDS ORDERED: KEFLEX500 MG PO (03:55)
[2019-02-04] MEDS ORDERED: ZOFRAN ODT4 MG/UDTAB PO (03:55)
[2019-02-04] MEDS ORDERED: ZOMIG5 MG PO (03:55)
[2019-02-04 04:58] VITALS: BP 141/83
== END 2019-02-04 04:20 | disposition home or self-care (01) ==
LOC: D.ER 00:43
DX: R11.2 Nausea with vomiting, unspecified (principal); R51 Headache; K02.9 Dental caries, unspecified

== ENCOUNTER 2019-02-07 21:41 | Emergency (ER) | payer MEDICAID ==
[~2019-02-07] VITALS: Ht 172.7 cm; Wt 67.3 kg
[~2019-02-07 21:41] MED LIST changes: +ZOFRAN ODT4 MG/UDTAB PO; +ZOMIG5 MG PO
[2019-02-07 21:44] VITALS: Ht 172.7 cm; Wt 67.3 kg
[2019-02-07 22:16] LABS: BASOPHILS 0.4 % (0-2); EOSINOPHILS 3.5 % (0-7); HEMATOCRIT 37.1 % (42.0-54.0); HEMOGLOBIN 11.8 g/dL (13.5-17.5); IMMATURE GRANULOCYTES 0.2 % (0-5); LYMPHOCYTES 27.8 % (15-50); MCH 30.6 pg (26.0-34.0); MCHC 31.8 g/dL (31.0-37.0); MCV 96.1 fL (80.0-100.0); MEAN PLATELET VOLUME 9.3 fL (7.4-10.4); MONOCYTES 7.8 % (2-11); NEUTROPHILS 60.3 % (40-80); PLATELET COUNT 243 10x3/uL (130-400); RBC 3.86 10x6/uL (4.20-6.10); RDW 14.8 % (11.5-14.5); WBC 8.2 10x3/uL (4.8-10.8)
[2019-02-07 22:33] LABS: ALBUMIN 3.4 g/dL (3.4-5.0); ALKALINE PHOSPHATASE 71 U/L (46-116); ALT (SGPT) 30 U/L (10-68); BILIRUBIN - TOTAL 0.16 mg/dL (0.2-1.3); CALC OSMOLALITY 285 mosm/kg (275-300); CALCIUM 7.9 mg/dL (8.5-10.1); CARBON DIOXIDE 25.3 mmol/L (21.0-32.0); CHLORIDE - SERUM 109 mmol/L (98-107); GLUCOSE 96 mg/dL (74-106); POTASSIUM - SERUM 3.9 mmol/L (3.5-5.1); PROTEIN - SERUM 6.6 g/dL (6.4-8.2); SODIUM 144 mmol/L (136-145); UREA NITROGEN 11 mg/dL (7-18); eGFR NON AFRICAN AMERICAN 87 mL/min (90-120)
[2019-02-07 22:34] LABS: AMYLASE - SERUM 53 U/L (25-115); LIPASE 140 U/L (73-393)
[2019-02-07 22:35] LABS: TROPONIN-I < 0.017 ng/mL (0.000-0.060)
[2019-02-07] MEDS ORDERED: LOMOTIL 2.5-0.1 EAC1 PO (23:37)
[2019-02-07] MEDS ORDERED: ZOFRAN ODT4 MG/UDTAB PO (23:37)
[2019-02-07 23:48] VITALS: BP 134/81
== END 2019-02-07 23:48 | disposition home or self-care (01) ==
LOC: D.ER 21:41
PROVIDERS: Family Medicine
DX: A08.4 Viral intestinal infection, unspecified (principal); I10 Essential (primary) hypertension; F17.210 Nicotine dependence, cigarettes, uncomplicated

== ENCOUNTER 2019-02-08 00:38 | Emergency (ER) | payer MEDICAID ==
[~2019-02-08] VITALS: Ht 172.7 cm; Wt 67.3 kg
[~2019-02-08 00:38] MED LIST changes: +LOMOTIL 2.5-0.1 EAC1 PO
[2019-02-08 00:42] VITALS: Ht 172.7 cm; Wt 67.3 kg
[2019-02-08 04:00] VITALS: BP 135/75
== END 2019-02-08 04:00 | disposition home or self-care (01) ==
LOC: D.ER 00:38
DX: A08.4 Viral intestinal infection, unspecified (principal); I10 Essential (primary) hypertension

== ENCOUNTER 2019-04-02 15:51 | Emergency (ER) | payer MEDICAID ==
[~2019-04-02] VITALS: Ht 172.7 cm; Wt 68.2 kg
[2019-04-02 15:55] VITALS: BP 153/97; Ht 172.7 cm; Wt 68.2 kg
[2019-04-02] MEDS ORDERED: UNKNOWN ANXIETY MED (15:56)
== END 2019-04-02 17:22 | disposition left against medical advice (07) ==
LOC: D.ER 15:51
DX: M25.519 Pain in unspecified shoulder (principal)

== ENCOUNTER 2019-06-08 03:35 | Emergency (ER) | payer MEDICAID ==
[~2019-06-08] VITALS: Ht 172.7 cm; Wt 68.2 kg
[~2019-06-08 03:35] MED LIST changes: +UNKNOWN ANXIETY MED
[2019-06-08 03:39] VITALS: Ht 172.7 cm; Wt 68.2 kg
[2019-06-08 03:57] LABS: BASOPHILS 0.2 % (0-2); EOSINOPHILS 1.3 % (0-7); HEMATOCRIT 39.8 % (42.0-54.0); HEMOGLOBIN 13.2 g/dL (13.5-17.5); IMMATURE GRANULOCYTES 0.2 % (0-5); LYMPHOCYTES 23.9 % (15-50); MCH 30.6 pg (26.0-34.0); MCHC 33.2 g/dL (31.0-37.0); MCV 92.3 fL (80.0-100.0); MEAN PLATELET VOLUME 9.3 fL (7.4-10.4); NEUTROPHILS 67.4 % (40-80); PLATELET COUNT 259 10x3/uL (130-400); RBC 4.31 10x6/uL (4.20-6.10); RDW 15.3 % (11.5-14.5); WBC 13.1 10x3/uL (4.8-10.8)
[2019-06-08 04:20] LABS: ANION GAP 13.5 mmol/L (8-16); CALCIUM 8.1 mg/dL (8.5-10.1); CARBON DIOXIDE 28.4 mmol/L (21.0-32.0); CREATININE - SERUM 1.4 mg/dL (0.6-1.3); POTASSIUM - SERUM 3.9 mmol/L (3.5-5.1)
[2019-06-08 04:26] LABS: ALBUMIN 4.1 g/dL (3.4-5.0); BILIRUBIN - TOTAL 0.39 mg/dL (0.2-1.3)
[2019-06-08 09:12] LABS: UDS - AMPHET POSITIVE QUAL (NEGATIVE); UDS - BARB NEGATIVE QUAL (NEGATIVE); UDS - BENZO NEGATIVE QUAL (NEGATIVE); UDS - COCAINE POSITIVE QUAL (NEGATIVE); UDS - OPIATE NEGATIVE QUAL (NEGATIVE); UDS - PCP NEGATIVE QUAL (NEGATIVE); UDS - THC POSITIVE QUAL (NEGATIVE)
[2019-06-08 09:39] LABS: APPEARANCE HAZY (CLEAR); BACTERIA MODERATE /hpf (NEGATIVE); BILIRUBIN NEGATIVE (NEGATIVE); COLOR YELLOW (YELLOW); EPITHELIAL CELLS 0-5 /hpf (0-5); GLUCOSE NEGATIVE (NEGATIVE); GRANULAR CAST RARE /lpf (NONE SEEN); HYALINE CAST OCC /lpf (NONE SEEN); KETONE NEGATIVE (NEGATIVE); MUCUS <1+ /lpf (NONE SEEN); NITRITE NEGATIVE (NEGATIVE); PROTEIN TRACE mg/dL (NEGATIVE); RED CELLS - URINE 0-5 /hpf (0-5); SPECIFIC GRAVITY 1.025 (1.005-1.020); WHITE CELLS - URINE 0-5 /hpf (NEGATIVE)
[2019-06-08 16:39] VITALS: BP 136/84
== END 2019-06-08 16:42 ==
LOC: D.ER 03:35
PROVIDERS: Family Medicine
DX: R45.850 Homicidal ideations (principal); F19.10 Other psychoactive substance abuse, uncomplicated; F10.129 Alcohol abuse with intoxication, unspecified; Y90.6 Blood alcohol level of 120-199 mg/100 ml

== ENCOUNTER 2019-08-08 05:08 | Emergency (ER) | payer MEDICAID ==
[2019-06-08 03:39] VITALS: Ht 172.7 cm; Wt 63.6 kg
[~2019-08-08] VITALS: Ht 172.7 cm; Wt 63.6 kg
[2019-08-08 05:36] LABS: UDS - AMPHET POSITIVE QUAL (NEGATIVE); UDS - BARB NEGATIVE QUAL (NEGATIVE); UDS - BENZO NEGATIVE QUAL (NEGATIVE); UDS - COCAINE POSITIVE QUAL (NEGATIVE); UDS - OPIATE NEGATIVE QUAL (NEGATIVE); UDS - PCP NEGATIVE QUAL (NEGATIVE); UDS - THC POSITIVE QUAL (NEGATIVE)
[2019-08-08 05:50] LABS: CALC OSMOLALITY 286 mosm/kg (275-300); CARBON DIOXIDE 30.2 mmol/L (21.0-32.0); CHLORIDE - SERUM 105 mmol/L (98-107); CREATININE - SERUM 1.1 mg/dL (0.6-1.3); GLUCOSE 90 mg/dL (74-106); POTASSIUM - SERUM 3.8 mmol/L (3.5-5.1); SODIUM 143 mmol/L (136-145); UREA NITROGEN 18 mg/dL (7-18); eGFR NON AFRICAN AMERICAN 78 mL/min (90-120)
--- NOTE | 2019-08-08 05:54 | NUR ---
DR. MCLEAN NOTIFIED OF PT'S BEHAVIOR AND ASSESMENTS RESULTS. PT IS A LOW RISK PER DR MCLEAN. DR. MCLEAN STATED TO GIVE PT RESOURCES AT TIME OF DISCHARGE. NO FURTHER ORDERS AT THIS TIME. REVIEWED RESOURCES WITH PT AND HE VERBALIZED UNDERSTANDING.
[2019-08-08 05:56] LABS: ALKALINE PHOSPHATASE 68 U/L (30-120); ALT (SGPT) 37 U/L (10-68); BILIRUBIN - TOTAL 0.34 mg/dL (0.2-1.3); MAGNESIUM - SERUM 2.3 mg/dL (1.8-2.4); PROTEIN - SERUM 7.6 g/dL (6.4-8.2)
[2019-08-08 06:17] LABS: BASOPHILS 0.3 % (0-2); EOSINOPHILS 2.3 % (0-7); HEMATOCRIT 38.9 % (42.0-54.0); HEMOGLOBIN 12.6 g/dL (13.5-17.5); IMMATURE GRANULOCYTES 0.1 % (0-5); LYMPHOCYTES 21.8 % (15-50); MCH 30.6 pg (26.0-34.0); MCHC 32.4 g/dL (31.0-37.0); MCV 94.4 fL (80.0-100.0); MEAN PLATELET VOLUME 9.5 fL (7.4-10.4); MONOCYTES 6.6 % (2-11); NEUTROPHILS 68.9 % (40-80); PLATELET COUNT 289 10x3/uL (130-400); RBC 4.12 10x6/uL (4.20-6.10); RDW 14.9 % (11.5-14.5); WBC 9.6 10x3/uL (4.8-10.8)
[2019-08-08 06:20] LABS: BILIRUBIN NEGATIVE (NEGATIVE); GLUCOSE NEGATIVE (NEGATIVE); KETONE NEGATIVE (NEGATIVE); NITRITE NEGATIVE (NEGATIVE); UROBILINOGEN NORMAL (NORMAL)
[2019-08-08 07:29] VITALS: BP 136/72
== END 2019-08-08 07:30 | disposition home or self-care (01) ==
LOC: D.ER 05:08
PROVIDERS: Family Medicine
DX: R45.850 Homicidal ideations (principal); F19.10 Other psychoactive substance abuse, uncomplicated; K21.9 Gastro-esophageal reflux disease without esophagitis

== ENCOUNTER 2019-08-10 06:03 | Emergency (ER) | payer MEDICAID ==
[~2019-08-10] VITALS: Ht 172.7 cm; Wt 63.6 kg
[2019-08-10 06:09] VITALS: Ht 172.7 cm; Wt 63.6 kg
[2019-08-10 06:53] LABS: BASOPHILS 0.3 % (0-2); EOSINOPHILS 4.9 % (0-7); HEMOGLOBIN 12.8 g/dL (13.5-17.5); IMMATURE GRANULOCYTES 0.1 % (0-5); LYMPHOCYTES 39.9 % (15-50); MCHC 31.2 g/dL (31.0-37.0); MCV 96.2 fL (80.0-100.0); MEAN PLATELET VOLUME 9.4 fL (7.4-10.4); MONOCYTES 7.3 % (2-11); NEUTROPHILS 47.5 % (40-80); PLATELET COUNT 284 10x3/uL (130-400); RBC 4.26 10x6/uL (4.20-6.10); RDW 15.1 % (11.5-14.5); WBC 7.3 10x3/uL (4.8-10.8)
[2019-08-10 06:57] LABS: APTT 26.1 SECONDS (22.8-39.4); INR 0.99 (0.85-1.17); PROTIME 13.1 SECONDS (11.6-15.0)
[2019-08-10 06:58] LABS: CALC OSMOLALITY 285 mosm/kg (275-300); CALCIUM 8.9 mg/dL (8.5-10.1); CARBON DIOXIDE 27.2 mmol/L (21.0-32.0); CHLORIDE - SERUM 108 mmol/L (98-107); GLUCOSE 87 mg/dL (74-106); POTASSIUM - SERUM 4.4 mmol/L (3.5-5.1); SODIUM 142 mmol/L (136-145); UREA NITROGEN 23 mg/dL (7-18); eGFR NON AFRICAN AMERICAN 87 mL/min (90-120)
[2019-08-10 07:05] LABS: ALBUMIN 3.9 g/dL (3.4-5.0); ALKALINE PHOSPHATASE 65 U/L (30-120); ALT (SGPT) 34 U/L (10-68); BILIRUBIN - TOTAL 0.32 mg/dL (0.2-1.3); PROTEIN - SERUM 7.1 g/dL (6.4-8.2)
[2019-08-10] MEDS ORDERED: FLAGYL500 MG PO (08:34)
[2019-08-10] MEDS ORDERED: LEVAQUIN750 MG PO (08:34)
[2019-08-10] MEDS ORDERED: FLORASTOR250 MG PO (08:36)
[2019-08-10 08:49] LABS: UDS - AMPHET POSITIVE QUAL (NEGATIVE); UDS - BARB NEGATIVE QUAL (NEGATIVE); UDS - BENZO NEGATIVE QUAL (NEGATIVE); UDS - COCAINE POSITIVE QUAL (NEGATIVE); UDS - OPIATE NEGATIVE QUAL (NEGATIVE); UDS - PCP NEGATIVE QUAL (NEGATIVE); UDS - THC POSITIVE QUAL (NEGATIVE)
[2019-08-10 09:05] LABS: BILIRUBIN NEGATIVE (NEGATIVE); GLUCOSE NEGATIVE (NEGATIVE); KETONE NEGATIVE (NEGATIVE); NITRITE NEGATIVE (NEGATIVE); UROBILINOGEN NORMAL (NORMAL)
[2019-08-10 09:09] LABS: EPITHELIAL CELLS RARE /hpf (0-5); RED CELLS - URINE RARE /hpf (0-5)
[2019-08-10 09:10] LABS: BACTERIA MODERATE /hpf (NEGATIVE)
[2019-08-10 09:58] VITALS: BP 109/62
== END 2019-08-10 09:59 | disposition home or self-care (01) ==
LOC: D.ER 06:03
PROVIDERS: Family Medicine
DX: K60.2 Anal fissure, unspecified (principal); K59.00 Constipation, unspecified; K21.9 Gastro-esophageal reflux disease without esophagitis

== ENCOUNTER 2019-09-11 02:34 | Emergency (ER) | payer MEDICAID ==
[~2019-09-11] VITALS: Ht 172.7 cm; Wt 77.3 kg
[~2019-09-11 02:34] MED LIST changes: +FLAGYL500 MG PO; +FLORASTOR250 MG PO; +LEVAQUIN750 MG PO
[2019-09-11 02:39] VITALS: Ht 172.7 cm; Wt 77.3 kg
[2019-09-11 03:05] LABS: BASOPHILS 0.2 % (0-2); EOSINOPHILS 2.3 % (0-7); HEMATOCRIT 41.5 % (42.0-54.0); HEMOGLOBIN 13.2 g/dL (13.5-17.5); IMMATURE GRANULOCYTES 0.3 % (0-5); MCH 30.6 pg (26.0-34.0); MCHC 31.8 g/dL (31.0-37.0); MCV 96.3 fL (80.0-100.0); MEAN PLATELET VOLUME 9.8 fL (7.4-10.4); MONOCYTES 6.1 % (2-11); NEUTROPHILS 62.1 % (40-80); PLATELET COUNT 298 10x3/uL (130-400); RBC 4.31 10x6/uL (4.20-6.10); RDW 15.1 % (11.5-14.5); WBC 13.3 10x3/uL (4.8-10.8)
[2019-09-11 03:15] LABS: ANION GAP 12.9 mmol/L (8-16); CALCIUM 8.5 mg/dL (8.5-10.1); CARBON DIOXIDE 25.6 mmol/L (21.0-32.0); CREATININE - SERUM 1.4 mg/dL (0.6-1.3); POTASSIUM - SERUM 3.5 mmol/L (3.5-5.1)
[2019-09-11] MEDS ORDERED: LEXAPRO5 MG PO (03:15)
[2019-09-11 03:21] LABS: BILIRUBIN NEGATIVE (NEGATIVE); GLUCOSE NEGATIVE (NEGATIVE); KETONE NEGATIVE (NEGATIVE); NITRITE NEGATIVE (NEGATIVE); SPECIFIC GRAVITY 1.015 (1.005-1.020); UROBILINOGEN NORMAL (NORMAL)
[2019-09-11 03:23] LABS: ALBUMIN 3.9 g/dL (3.4-5.0); BILIRUBIN - TOTAL 0.21 mg/dL (0.2-1.3); MAGNESIUM - SERUM 2.1 mg/dL (1.8-2.4); PROTEIN - SERUM 7.6 g/dL (6.4-8.2)
[2019-09-11 03:28] LABS: UDS - AMPHET POSITIVE QUAL (NEGATIVE); UDS - BARB NEGATIVE QUAL (NEGATIVE); UDS - BENZO NEGATIVE QUAL (NEGATIVE); UDS - COCAINE POSITIVE QUAL (NEGATIVE); UDS - OPIATE NEGATIVE QUAL (NEGATIVE); UDS - PCP NEGATIVE QUAL (NEGATIVE); UDS - THC POSITIVE QUAL (NEGATIVE)
--- NOTE | 2019-09-11 04:35 | NUR ---
DR CMLEAN NOTIFIED OF PATIENT'S BEHAVIOR AND ASSESSMENT FINDINGS. PATIENT IS LOW RISK FOR SUICIDE HOWEVER APPEARS HOMICIDAL. NO ORDERS RECEIVED. SPOKE WITH CHARGE NURSE AND DOCTOR REGARDING ASSESSMENT FINDINGS.
[2019-09-11 08:09] VITALS: BP 124/60
== END 2019-09-11 08:11 | disposition home or self-care (01) ==
LOC: D.ER 02:34
PROVIDERS: Family Medicine
DX: R45.851 Suicidal ideations (principal); F10.10 Alcohol abuse, uncomplicated; Y90.2 Blood alcohol level of 40-59 mg/100 ml; F15.10 Other stimulant abuse, uncomplicated; F14.10 Cocaine abuse, uncomplicated; F12.10 Cannabis abuse, uncomplicated; D72.829 Elevated white blood cell count, unspecified; N28.9 Disorder of kidney and ureter, unspecified; K21.9 Gastro-esophageal reflux disease without esophagitis

== ENCOUNTER 2019-09-15 23:06 | Emergency (ER) | payer MEDICAID ==
[~2019-09-15] VITALS: Ht 172.7 cm; Wt 59.1 kg
[~2019-09-15 23:06] MED LIST changes: +LEXAPRO5 MG PO
[2019-09-15 23:35] VITALS: Ht 172.7 cm; Wt 59.1 kg
[2019-09-15 23:58] LABS: HEMATOCRIT 37.8 % (42.0-54.0); HEMOGLOBIN 12.5 g/dL (13.5-17.5); LYMPHOCYTES 38.2 % (15-50); MCH 30.9 pg (26.0-34.0); MCHC 33.1 g/dL (31.0-37.0); MCV 93.6 fL (80.0-100.0); MEAN PLATELET VOLUME 8.8 fL (7.4-10.4); NEUTROPHILS 54.7 % (40-80); PLATELET COUNT 249 10x3/uL (130-400); RBC 4.04 10x6/uL (4.20-6.10); RDW 15.3 % (11.5-14.5); WBC 8.3 10x3/uL (4.8-10.8)
[2019-09-16 00:08] LABS: CALC OSMOLALITY 278 mosm/kg (275-300); CALCIUM 8.2 mg/dL (8.5-10.1); CARBON DIOXIDE 26.3 mmol/L (21.0-32.0); CHLORIDE - SERUM 105 mmol/L (98-107); CREATININE - SERUM 1.1 mg/dL (0.6-1.3); GLUCOSE 97 mg/dL (74-106); POTASSIUM - SERUM 4.1 mmol/L (3.5-5.1); SODIUM 140 mmol/L (136-145); UREA NITROGEN 13 mg/dL (7-18); eGFR NON AFRICAN AMERICAN 78 mL/min (90-120)
[2019-09-16 00:14] LABS: ALBUMIN 3.5 g/dL (3.4-5.0); ALKALINE PHOSPHATASE 69 U/L (30-120); ALT (SGPT) 29 U/L (10-68); BILIRUBIN - TOTAL 0.31 mg/dL (0.2-1.3); MAGNESIUM - SERUM 2.1 mg/dL (1.8-2.4)
--- NOTE | 2019-09-16 00:36 | NUR ---
PATIENT IS IN ER 20, HE CAME IN WITH DEPRESSION AND WITH S/I, HOWEVER AT THIS TIME HE SAYS "I JUST WAS GOING THROUGH SOMETHING AND I JUST NEED SOME HELP". HE DENIES, BEING SUICIDIAL AND ALSO DENIED IT TO THE EMERGENCY ROOM NURSE, PATIENT IS COOPERATIVE BUT VERY VERY DROWSY AND IS FALLING ASLEEP REPEATEDLY AND THE ASSESSMENT QUESTIONS ARE HAVING TO BE ASKED OVER AND OVER AGAIN. [phone] NUMBER GIVEN TO PATIENT FOR FUTURE REFERENCE AND EXPLAINED TO PATIENT THAT HE COULD CALL THIS NUMBER TO TALK TO SOMEONE NEXT TIME THAT HE WAS FEELING OVERWHELMED. HE VERBALIZED UNDERSTANDING.
[2019-09-16 01:49] LABS: UDS - AMPHET POSITIVE QUAL (NEGATIVE); UDS - BARB NEGATIVE QUAL (NEGATIVE); UDS - BENZO NEGATIVE QUAL (NEGATIVE); UDS - OPIATE NEGATIVE QUAL (NEGATIVE); UDS - PCP NEGATIVE QUAL (NEGATIVE); UDS - THC POSITIVE QUAL (NEGATIVE)
[2019-09-16 01:57] LABS: BILIRUBIN NEGATIVE (NEGATIVE); GLUCOSE NEGATIVE (NEGATIVE); KETONE NEGATIVE (NEGATIVE); NITRITE NEGATIVE (NEGATIVE); SPECIFIC GRAVITY 1.025 (1.005-1.020); UROBILINOGEN NORMAL (NORMAL)
[2019-09-16 01:58] LABS: BACTERIA FEW /hpf (NEGATIVE); EPITHELIAL CELLS 0-5 /hpf (0-5); RED CELLS - URINE 0-5 /hpf (0-5)
[2019-09-16 04:28] VITALS: BP 132/84
[2019-09-16 14:06] LABS: UDS - COCAINE POSITIVE QUAL (NEGATIVE)
== END 2019-09-16 04:29 | disposition home or self-care (01) ==
LOC: D.ER 23:06
PROVIDERS: Family Medicine
DX: F15.10 Other stimulant abuse, uncomplicated (principal); F32.9 Major depressive disorder, single episode, unspecified; R45.851 Suicidal ideations; K21.9 Gastro-esophageal reflux disease without esophagitis

== ENCOUNTER 2019-09-28 01:11 | Emergency (ER) | payer MEDICAID ==
[~2019-09-28] VITALS: Ht 172.7 cm; Wt 68.2 kg
[2019-09-28 01:17] VITALS: Ht 172.7 cm; Wt 68.2 kg
[2019-09-28 02:20] LABS: UDS - AMPHET NEGATIVE QUAL (NEGATIVE); UDS - BARB NEGATIVE QUAL (NEGATIVE); UDS - BENZO NEGATIVE QUAL (NEGATIVE); UDS - COCAINE POSITIVE QUAL (NEGATIVE); UDS - OPIATE NEGATIVE QUAL (NEGATIVE); UDS - PCP NEGATIVE QUAL (NEGATIVE); UDS - THC POSITIVE QUAL (NEGATIVE)
[2019-09-28 02:24] LABS: BILIRUBIN NEGATIVE (NEGATIVE); GLUCOSE NEGATIVE (NEGATIVE); KETONE NEGATIVE (NEGATIVE); NITRITE NEGATIVE (NEGATIVE); SPECIFIC GRAVITY 1.025 (1.005-1.020); UROBILINOGEN NORMAL (NORMAL)
[2019-09-28 02:25] LABS: BASOPHILS 0.3 % (0-2); EOSINOPHILS 4.4 % (0-7); HEMATOCRIT 35.1 % (42.0-54.0); HEMOGLOBIN 11.3 g/dL (13.5-17.5); IMMATURE GRANULOCYTES 0.1 % (0-5); LYMPHOCYTES 36.8 % (15-50); MCH 30.5 pg (26.0-34.0); MCHC 32.2 g/dL (31.0-37.0); MCV 94.6 fL (80.0-100.0); MEAN PLATELET VOLUME 8.7 fL (7.4-10.4); MONOCYTES 5.7 % (2-11); NEUTROPHILS 52.7 % (40-80); PLATELET COUNT 238 10x3/uL (130-400); RBC 3.71 10x6/uL (4.20-6.10); RDW 14.9 % (11.5-14.5); WBC 8.8 10x3/uL (4.8-10.8)
[2019-09-28 02:25] LABS: BACTERIA FEW /hpf (NEGATIVE); EPITHELIAL CELLS 0-5 /hpf (0-5); RED CELLS - URINE 0-5 /hpf (0-5)
[2019-09-28 02:28] LABS: CALC OSMOLALITY 278 mosm/kg (275-300); CALCIUM 7.7 mg/dL (8.5-10.1); CARBON DIOXIDE 24.1 mmol/L (21.0-32.0); CHLORIDE - SERUM 109 mmol/L (98-107); CREATININE - SERUM 1.1 mg/dL (0.6-1.3); GLUCOSE 89 mg/dL (74-106); POTASSIUM - SERUM 3.4 mmol/L (3.5-5.1); SODIUM 141 mmol/L (136-145); UREA NITROGEN 10 mg/dL (7-18); eGFR NON AFRICAN AMERICAN 78 mL/min (90-120)
[2019-09-28 02:44] LABS: ACETAMINOPHEN 1.6 ug/mL (10.0-30.0); ALBUMIN 3.1 g/dL (3.4-5.0); ALKALINE PHOSPHATASE 60 U/L (30-120); ALT (SGPT) 27 U/L (10-68); BILIRUBIN - TOTAL 0.12 mg/dL (0.2-1.3); MAGNESIUM - SERUM 1.9 mg/dL (1.8-2.4); PROTEIN - SERUM 6.1 g/dL (6.4-8.2)
[2019-09-28 05:20] VITALS: BP 126/72
== END 2019-09-28 05:20 ==
LOC: D.ER 01:11
PROVIDERS: Family Medicine
DX: F32.9 Major depressive disorder, single episode, unspecified (principal); F19.10 Other psychoactive substance abuse, uncomplicated; K21.9 Gastro-esophageal reflux disease without esophagitis

== ENCOUNTER 2019-10-08 19:51 | Emergency (ER) | payer MEDICAID ==
[~2019-10-08] VITALS: Ht 172.7 cm; Wt 65.0 kg
[2019-10-08 20:15] VITALS: Ht 172.7 cm; Wt 65.0 kg
[2019-10-08] MEDS ORDERED: LITHIUM CARBON150 MG PO (20:16)
[2019-10-08 20:39] LABS: BASOPHILS 0.3 % (0-2); EOSINOPHILS 6.6 % (0-7); HEMATOCRIT 37.9 % (42.0-54.0); HEMOGLOBIN 12.3 g/dL (13.5-17.5); IMMATURE GRANULOCYTES 0.2 % (0-5); LYMPHOCYTES 44.3 % (15-50); MCH 30.4 pg (26.0-34.0); MCHC 32.5 g/dL (31.0-37.0); MCV 93.6 fL (80.0-100.0); MEAN PLATELET VOLUME 8.6 fL (7.4-10.4); MONOCYTES 10.1 % (2-11); NEUTROPHILS 38.5 % (40-80); PLATELET COUNT 272 10x3/uL (130-400); RBC 4.05 10x6/uL (4.20-6.10); WBC 6.5 10x3/uL (4.8-10.8)
[2019-10-08 20:55] LABS: APTT 26.6 SECONDS (22.8-39.4); CALC OSMOLALITY 276 mosm/kg (275-300); CALCIUM 8.3 mg/dL (8.5-10.1); CARBON DIOXIDE 28.4 mmol/L (21.0-32.0); CHLORIDE - SERUM 106 mmol/L (98-107); CREATININE - SERUM 1.4 mg/dL (0.6-1.3); GLUCOSE 94 mg/dL (74-106); INR 1.06 (0.85-1.17); POTASSIUM - SERUM 3.7 mmol/L (3.5-5.1); PROTIME 13.7 SECONDS (11.6-15.0); SODIUM 138 mmol/L (136-145); UREA NITROGEN 14 mg/dL (7-18); eGFR NON AFRICAN AMERICAN 59 mL/min (90-120)
[2019-10-08 21:11] LABS: ALBUMIN 3.5 g/dL (3.4-5.0); ALKALINE PHOSPHATASE 59 U/L (30-120); ALT (SGPT) 24 U/L (10-68); BILIRUBIN - TOTAL 0.22 mg/dL (0.2-1.3); CKMB 1.8 U/L (0.0-3.6); CREATINE KINASE 274 UL (21-232); PROTEIN - SERUM 6.8 g/dL (6.4-8.2); THYROID STIMULATING HORMONE 2.36 uIU/mL (0.36-3.74)
[2019-10-08 21:12] LABS: TROPONIN-I < 0.017 ng/mL (0.000-0.060)
[2019-10-08 21:21] LABS: UDS - AMPHET POSITIVE QUAL (NEGATIVE); UDS - BARB NEGATIVE QUAL (NEGATIVE); UDS - BENZO NEGATIVE QUAL (NEGATIVE); UDS - COCAINE POSITIVE QUAL (NEGATIVE); UDS - OPIATE NEGATIVE QUAL (NEGATIVE); UDS - PCP NEGATIVE QUAL (NEGATIVE); UDS - THC POSITIVE QUAL (NEGATIVE)
[2019-10-08] MEDS ORDERED: STERAPRED DS 1010 MG PO (22:25)
[2019-10-08] MEDS ORDERED: ZOVIRAX200 MG PO (22:25)
[2019-10-08 22:41] VITALS: BP 122/88
== END 2019-10-08 22:42 | disposition home or self-care (01) ==
LOC: D.ER 19:51
PROVIDERS: Family Medicine
DX: G51.0 Bell's palsy (principal); F19.90 Other psychoactive substance use, unspecified, uncomplicated

== ENCOUNTER 2019-10-15 08:28 | Emergency (ER) | payer MEDICAID ==
[~2019-10-15] VITALS: Ht 172.7 cm; Wt 64.5 kg
[~2019-10-15 08:28] MED LIST changes: +LITHIUM CARBON150 MG PO; +ZOVIRAX200 MG PO
[2019-10-15 08:43] VITALS: BP 137/93; Ht 172.7 cm; Wt 64.5 kg
[2019-10-15] MEDS ORDERED: ELAVIL25 MG PO (08:46)
[2019-10-15] MEDS ORDERED: STERAPRED DS 1010 MG PO (08:46)
[2019-10-15] MEDS ORDERED: PROZAC20 MG PO (08:47)
== END 2019-10-15 14:44 ==
LOC: D.ER 08:28
DX: R45.850 Homicidal ideations (principal); G51.0 Bell's palsy

== ENCOUNTER 2020-10-19 03:38 | Emergency (ER) | payer BC ==
[~2020-10-19] VITALS: Ht 172.7 cm; Wt 67.3 kg
[~2020-10-19 03:38] MED LIST changes: +ELAVIL25 MG PO; +PROZAC20 MG PO; +STERAPRED 5MG 65 M1 PO; +SUDAFED 30 MG T30 MG PO; +ZYRTEC10 MG PO
[2020-10-19 03:43] VITALS: BP 131/82; Ht 172.7 cm; Wt 67.3 kg
--- NOTE | 2020-10-19 04:09 | NUR ---
DR. MCLEAN NOTIFIED AND REVIEWED PT'S BEHAVIOR AND ASSESSMENT RESULTS. PT IS A LOW RISK PER DR. MCLEAN. DR. MCLEAN STATED TO GIVE RESOURCSE TO PT AT TIME OF DISCHARGE. NO FURTHER ORDERS AT THIS TIME. RESOURCES REVIEWED WITH PT AND HE VERBALIZED UNDERSTANDING.
[2020-10-19 04:20] LABS: BILIRUBIN NEGATIVE (NEGATIVE); KETONE NEGATIVE (NEGATIVE); NITRITE NEGATIVE (NEGATIVE); UROBILINOGEN NORMAL mg/dL (< 2)
[2020-10-19 04:22] LABS: BACTERIA FEW HPF (NONE SEEN); SQUAMOUS EPITHELIAL 0-5 HPF (0-4); WHITE CELLS - URINE 0-5 HPF (0-1)
[2020-10-19 04:27] LABS: UDS - AMPHET POSITIVE QUAL (NEGATIVE); UDS - BARB NEGATIVE QUAL (NEGATIVE); UDS - BENZO NEGATIVE QUAL (NEGATIVE); UDS - COCAINE POSITIVE QUAL (NEGATIVE); UDS - OPIATE NEGATIVE QUAL (NEGATIVE); UDS - PCP NEGATIVE QUAL (NEGATIVE); UDS - THC POSITIVE QUAL (NEGATIVE)
[2020-10-19 04:30] LABS: BASOPHILS 0.4 % (0-2); EOSINOPHILS 3.6 % (0-7); HEMOGLOBIN 12.1 g/dL (13.5-17.5); LYMPHOCYTES 27.3 % (15-50); MCH 30.3 pg (26.0-34.0); MCHC 32.6 g/dL (31.0-37.0); MCV 92.9 fL (80.0-100.0); MEAN PLATELET VOLUME 7.1 fL (7.4-10.4); MONOCYTES 7.4 % (2-11); NEUTROPHILS 61.3 % (40-80); RBC 3.98 10x6/uL (4.20-6.10); RDW 16.5 % (11.5-14.5); WBC 8.5 10x3/uL (4.8-10.8)
[2020-10-19 04:33] LABS: PLATELET COUNT 281 10x3/uL (130-400)
[2020-10-19 04:37] LABS: ANION GAP 13.2 mmol/L (8-16); CALCIUM 8.3 mg/dL (8.5-10.1); CARBON DIOXIDE 25.4 mmol/L (21.0-32.0); CREATININE - SERUM 1.4 mg/dL (0.6-1.3); POTASSIUM - SERUM 3.6 mmol/L (3.5-5.1)
[2020-10-19 04:47] LABS: ALBUMIN 3.7 g/dL (3.4-5.0); BILIRUBIN - TOTAL 0.28 mg/dL (0.2-1.3); MAGNESIUM - SERUM 2.2 mg/dL (1.8-2.4)
== END 2020-10-19 07:13 | disposition home or self-care (01) ==
LOC: D.ER 03:38
PROVIDERS: Family Medicine
DX: F32.9 Major depressive disorder, single episode, unspecified (principal); F41.9 Anxiety disorder, unspecified; F19.10 Other psychoactive substance abuse, uncomplicated; G51.0 Bell's palsy

== ENCOUNTER 2020-10-22 03:56 | Emergency (ER) | payer BC ==
[~2020-10-22] VITALS: Ht 172.7 cm; Wt 49.9 kg
[2020-10-22 04:03] VITALS: Ht 172.7 cm; Wt 49.9 kg
--- NOTE | 2020-10-22 04:53 | NUR ---
DR MCLEAN NOTIFIED AND REVIEWED PATIENT'S BEHAVIOR AND ASSESSMENT. PATIENT IS HIGH RISK. SITTER ORDERED AND AT BEDSIDE. PATIENT REFUSES SAFETY PLAN AND WILL NOT CONTRACT FOR SAFETY. RESOURCES GIVEN. PATIENT STATED HE DIDN'T WANT THE RESOURCE SHEET.
[2020-10-22 05:42] LABS: SARS-CoV-2 ANTIGEN NEGATIVE- SARS-COV-2 (NEGATIVE)
[2020-10-22 06:02] LABS: BASOPHILS 0.4 % (0-2); EOSINOPHILS 2.6 % (0-7); HEMATOCRIT 38.1 % (42.0-54.0); HEMOGLOBIN 12.4 g/dL (13.5-17.5); IMMATURE GRANULOCYTES 0.1 % (0-5); LYMPHOCYTE ABS# 2.32 10x3/uL (1.32-3.57); MCH 30.3 pg (26.0-34.0); MCHC 32.5 g/dL (31.0-37.0); MCV 93.2 fL (80.0-100.0); MEAN PLATELET VOLUME 9.8 fL (7.4-10.4); NEUTROPHIL ABS# 5.71 10x3/uL (1.78-5.38); NEUTROPHILS 63.9 % (40-80); PLATELET COUNT 279 10x3/uL (130-400); RBC 4.09 10x6/uL (4.20-6.10); RDW 15.1 % (11.5-14.5); WBC 8.9 10x3/uL (4.8-10.8)
[2020-10-22 06:09] LABS: BILIRUBIN NEGATIVE (NEGATIVE); KETONE NEGATIVE mg/dL (< 1+); NITRITE NEGATIVE (NEGATIVE); SQUAMOUS EPITHELIAL <1 HPF (0-4); UROBILINOGEN NORMAL mg/dL (< 2); WHITE CELLS - URINE 21 HPF (0-1)
[2020-10-22 06:16] LABS: CALC OSMOLALITY 275 mosm/kg (275-300); CALCIUM 8.5 mg/dL (8.5-10.1); CARBON DIOXIDE 24.9 mmol/L (21.0-32.0); CHLORIDE - SERUM 104 mmol/L (98-107); CREATININE - SERUM 1.1 mg/dL (0.6-1.3); POTASSIUM - SERUM 3.8 mmol/L (3.5-5.1); SODIUM 138 mmol/L (136-145); UREA NITROGEN 14 mg/dL (7-18); eGFR NON AFRICAN AMERICAN 78 mL/min (90-120)
[2020-10-22 06:18] LABS: UDS - AMPHET POSITIVE QUAL (NEGATIVE); UDS - BARB NEGATIVE QUAL (NEGATIVE); UDS - BENZO NEGATIVE QUAL (NEGATIVE); UDS - COCAINE POSITIVE QUAL (NEGATIVE); UDS - OPIATE NEGATIVE QUAL (NEGATIVE); UDS - PCP NEGATIVE QUAL (NEGATIVE); UDS - THC POSITIVE QUAL (NEGATIVE)
[2020-10-22 06:19] LABS: GLUCOSE 81 mg/dL (74-106)
[2020-10-22] MEDS ORDERED: OMNICEF300 MG PO (06:27)
[2020-10-22 07:06] LABS: ALKALINE PHOSPHATASE 55 U/L (30-120); ALT (SGPT) 23 U/L (10-68); BILIRUBIN - TOTAL 0.33 mg/dL (0.2-1.3); MAGNESIUM - SERUM 2.2 mg/dL (1.8-2.4); PROTEIN - SERUM 7.1 g/dL (6.4-8.2)
[2020-10-22 07:10] LABS: ALBUMIN 3.8 g/dL (3.4-5.0); ALCOHOL - BLOOD (MEDICAL) < 10.0 mg/dL (0.0-10.0)
[2020-10-22 08:54] VITALS: BP 138/72
== END 2020-10-22 09:59 ==
LOC: D.ER 03:56
PROVIDERS: Family Medicine
DX: R45.851 Suicidal ideations (principal); F32.9 Major depressive disorder, single episode, unspecified; G51.0 Bell's palsy

== ENCOUNTER 2020-10-28 05:19 | Emergency (ER) | payer BC ==
[~2020-10-28] VITALS: Ht 172.7 cm; Wt 66.8 kg
[~2020-10-28 05:19] MED LIST changes: +OMNICEF300 MG PO
[2020-10-28 05:25] VITALS: Ht 172.7 cm; Wt 66.8 kg
[2020-10-28 05:49] LABS: BASOPHILS 0.9 % (0-2); HEMATOCRIT 37.9 % (42.0-54.0); HEMOGLOBIN 12.6 g/dL (13.5-17.5); LYMPHOCYTES 32.4 % (15-50); MCH 30.9 pg (26.0-34.0); MCHC 33.4 g/dL (31.0-37.0); MCV 92.4 fL (80.0-100.0); MEAN PLATELET VOLUME 6.7 fL (7.4-10.4); MONOCYTES 5.2 % (2-11); NEUTROPHILS 58.5 % (40-80); PLATELET COUNT 291 10x3/uL (130-400); RDW 15.3 % (11.5-14.5); WBC 10.4 10x3/uL (4.8-10.8)
[2020-10-28 05:56] LABS: CALC OSMOLALITY 278 mosm/kg (275-300); CALCIUM 8.3 mg/dL (8.5-10.1); CHLORIDE - SERUM 104 mmol/L (98-107); CREATININE - SERUM 1.1 mg/dL (0.6-1.3); GLUCOSE 102 mg/dL (74-106); POTASSIUM - SERUM 3.4 mmol/L (3.5-5.1); SODIUM 140 mmol/L (136-145); UREA NITROGEN 12 mg/dL (7-18); eGFR NON AFRICAN AMERICAN 78 mL/min (90-120)
[2020-10-28 06:02] LABS: ALBUMIN 3.9 g/dL (3.4-5.0); ALKALINE PHOSPHATASE 59 U/L (30-120); ALT (SGPT) 27 U/L (10-68); BILIRUBIN - TOTAL 0.17 mg/dL (0.2-1.3); MAGNESIUM - SERUM 2.1 mg/dL (1.8-2.4); PROTEIN - SERUM 7.3 g/dL (6.4-8.2)
[2020-10-28 07:02] LABS: BILIRUBIN NEGATIVE (NEGATIVE); KETONE TRACE mg/dL (< 1+); NITRITE NEGATIVE (NEGATIVE); SQUAMOUS EPITHELIAL <1 HPF (0-4); UROBILINOGEN 2 mg/dL (< 2); WHITE CELLS - URINE 21 HPF (0-1)
[2020-10-28 07:06] LABS: URIC ACID CRYSTALS 0-5 HPF (NONE SEEN)
[2020-10-28 07:08] LABS: UDS - AMPHET NEGATIVE QUAL (NEGATIVE); UDS - BARB NEGATIVE QUAL (NEGATIVE); UDS - BENZO NEGATIVE QUAL (NEGATIVE); UDS - COCAINE POSITIVE QUAL (NEGATIVE); UDS - OPIATE NEGATIVE QUAL (NEGATIVE); UDS - PCP NEGATIVE QUAL (NEGATIVE); UDS - THC POSITIVE QUAL (NEGATIVE)
[2020-10-28 07:44] VITALS: BP 112/78
[2020-10-28 07:48] LABS: SARS-CoV-2 ANTIGEN NEGATIVE- SARS-COV-2 (NEGATIVE)
== END 2020-10-28 19:33 | disposition left against medical advice (07) ==
LOC: D.ER 05:19
PROVIDERS: Emergency Medicine; Family Medicine
DX: R45.851 Suicidal ideations (principal); R45.850 Homicidal ideations; F32.9 Major depressive disorder, single episode, unspecified

== ENCOUNTER 2020-11-04 09:54 | Emergency (ER) | payer BC ==
[~2020-11-04] VITALS: Ht 172.7 cm; Wt 66.8 kg
[2020-11-04 10:02] VITALS: BP 130/90; Ht 172.7 cm; Wt 66.8 kg
[2020-11-04] MEDS ORDERED: PREDNISONE50 MG PO (10:07)
== END 2020-11-04 10:34 | disposition home or self-care (01) ==
LOC: D.ER 09:54
DX: L23.7 Allergic contact dermatitis due to plants, except food (principal)

== ENCOUNTER 2020-11-05 04:25 | Emergency (ER) | payer BC ==
[~2020-11-05 04:25] MED LIST changes: +PREDNISONE50 MG PO
[2020-11-05 04:33] VITALS: Ht 172.7 cm
[2020-11-05 05:52] LABS: BASOPHILS 0.2 % (0-2); EOSINOPHILS 0.1 % (0-7); HEMATOCRIT 36.7 % (42.0-54.0); MCH 30.5 pg (26.0-34.0); MCHC 32.7 g/dL (31.0-37.0); MCV 93.3 fL (80.0-100.0); MEAN PLATELET VOLUME 7.6 fL (7.4-10.4); MONOCYTES 6.6 % (2-11); NEUTROPHILS 70.1 % (40-80); PLATELET COUNT 283 10x3/uL (130-400); RBC 3.93 10x6/uL (4.20-6.10); RDW 15.5 % (11.5-14.5); WBC 9.2 10x3/uL (4.8-10.8)
[2020-11-05 05:56] LABS: ANION GAP 13.6 mmol/L (8-16); CALCIUM 8.6 mg/dL (8.5-10.1); CARBON DIOXIDE 25.9 mmol/L (21.0-32.0); CREATININE - SERUM 1.3 mg/dL (0.6-1.3); POTASSIUM - SERUM 3.5 mmol/L (3.5-5.1)
[2020-11-05 06:00] LABS: UDS - AMPHET NEGATIVE QUAL (NEGATIVE); UDS - BARB NEGATIVE QUAL (NEGATIVE); UDS - BENZO NEGATIVE QUAL (NEGATIVE); UDS - COCAINE POSITIVE QUAL (NEGATIVE); UDS - OPIATE NEGATIVE QUAL (NEGATIVE); UDS - PCP NEGATIVE QUAL (NEGATIVE); UDS - THC POSITIVE QUAL (NEGATIVE)
[2020-11-05 06:03] LABS: BILIRUBIN - TOTAL 0.28 mg/dL (0.2-1.3); MAGNESIUM - SERUM 2.7 mg/dL (1.8-2.4); PROTEIN - SERUM 7.5 g/dL (6.4-8.2)
[2020-11-05 06:08] LABS: BILIRUBIN NEGATIVE (NEGATIVE); KETONE TRACE mg/dL (< 1+); NITRITE NEGATIVE (NEGATIVE); PH 5.5 (5.0-8.0); SQUAMOUS EPITHELIAL <1 HPF (0-4); UROBILINOGEN 2 mg/dL (< 2); WHITE CELLS - URINE 24 HPF (0-1)
[2020-11-05 09:00] LABS: SARS-CoV-2 ANTIGEN NEGATIVE- SARS-COV-2 (NEGATIVE)
[2020-11-05 10:31] VITALS: BP 142/89
== END 2020-11-06 02:24 | disposition home or self-care (01) ==
LOC: D.ER 04:25
PROVIDERS: Family Medicine
DX: R41.82 Altered mental status, unspecified (principal); R45.850 Homicidal ideations